=== PATIENT | female | born 1950 | race Caucasian/White ===

== ENCOUNTER 2017-09-07 11:46 | Observation (INO) | payer MEDICARE, OTHER ==
[2017-09-06 13:10] LABS: BASOPHILS # (AUTO) 0.1 (0.0-0.1); BASOPHILS % 0.7 % (0.0-1.0); EOSINOPHILS # (AUTO) 0.1 (0.0-0.4); EOSINOPHILS % 1.4 % (0.0-6.0); HEMATOCRIT 39.6 % (34.2-44.1); HEMOGLOBIN 13.8 g/dL (12.0-16.0); LYMPHOCYTES # (AUTO) 2.2 (1.0-3.2); LYMPHOCYTES % 23.2 % (18.0-39.1); MEAN CORPUSCULAR HEMOGLOBIN 31.1 pg (28-32); MEAN CORPUSCULAR HGB CONC 34.8 g/dL (31-35); MEAN CORPUSCULAR VOLUME 89.2 fL (81-99); MONOCYTES # (AUTO) 0.6 (0.2-0.8); MONOCYTES % 6.6 % (4.4-11.3); NEUTROPHILS # (AUTO) 6.3 (2.1-6.9); NEUTROPHILS % 67.5 % (38.7-80.0); PLATELET COUNT 289 x10e3/uL (140-360); RED BLOOD COUNT 4.44 x10e6/uL (3.6-5.1); RED CELL DISTRIBUTION WIDTH 13.2 % (11.7-14.4)
[2017-09-06 13:30] LABS: ALBUMIN 3.9 g/dL (3.5-5.0); ALBUMIN/GLOBULIN RATIO 1.1 (0.8-2.0); ANION GAP 16.1 mmol/L (8-16); CALCIUM 9.4 mg/dL (8.4-10.2); CREATININE, SERUM 0.98 mg/dL (0.57-1.11); POTASSIUM 4.1 mmol/L (3.5-5.1)
[~2017-09-07] VITALS: Ht 170.2 cm; Wt 79.8 kg
[~2017-09-07 11:46] MED LIST: AMLODIPINE BESYL5 MG PO; ASPIR 8181 MG PO; B-125000 MCG PO; BENICAR20 MG PO; CILOSTAZOL100 MG PO; CLOPIDOGREL75 MG PO; FLONASE NS; PRAVASTATIN SOD40 MG PO; VITAMIN D35000 UNI1 PO; ZYRTEC10 MG PO
[2017-09-07 15:25] VITALS: BP 145/73
[2017-09-07] MEDS ORDERED: DIPHENHYDRAMINE HCL 25 MG CAP ONE (15:55)
[2017-09-07] MEDS ORDERED: ALPRAZOLAM 0.5 MG TAB ONE (15:55)
[2017-09-07] MEDS ORDERED: HEPARIN SOD/SOD CHLORIDE 2,000 ML ONE (16:24)
[2017-09-07] MEDS ORDERED: FENTANYL CITRATE/PF 100MCG/2 ML INJ ONE (16:24)
[2017-09-07] MEDS ORDERED: IOPAMIDOL 370 MG/ML 200 ML INFUS..BTL INJ ONE (16:24)
[2017-09-07] MEDS ORDERED: LIDOCAINE HCL 2% LOCAL 20 ML VIAL ONE (16:24)
[2017-09-07] MEDS ORDERED: MIDAZOLAM HCL 2 MG/2 ML VIAL ONE ×2 (16:24→17:14)
[2017-09-07] MEDS ORDERED: VERAPAMIL HCL 2.5 MG/ML 2 ML VIAL ONE (17:00)
[2017-09-07] MEDS ORDERED: HEPARIN SOD (PORCINE) 1000 UNIT/ML 30ML ONE (17:00)
[2017-09-07] MEDS ORDERED: NITROGLYCERIN/D5W 200 MCG/ML 250 ML ONE (17:01)
[2017-09-07] MEDS ORDERED: SODIUM CHLORIDE 0.9% 1000ML 1,000 ML ONE (17:01)
[2017-09-07] MEDS ORDERED: ASPIRIN 325 MG TAB ONE (17:29)
[2017-09-07] MEDS ORDERED: PRASUGREL 10 MG TAB ONE (17:29)
[2017-09-07] MEDS ORDERED: ACETAMINOPHEN 325 MG TAB PO PRN (22:30)
[2017-09-08] VITALS: BP 135/63
[2017-09-08 04:00] VITALS: BP 140/63
[2017-09-08 07:30] VITALS: BP 140/63
[2017-09-08] MEDS ORDERED: CHOLECALCIFEROL PO SCH (09:00)
[2017-09-08] MEDS ORDERED: CLOPIDOGREL BISULFATE 75 MG TAB PO SCH (09:00)
[2017-09-08] MEDS ORDERED: ASPIRIN 81 MG CHEW TAB PO SCH (09:00)
[2017-09-08] MEDS ORDERED: CHOLECALCIFEROL 1,000 UNIT TAB PO SCH (09:00)
[2017-09-08] MEDS ORDERED: CETIRIZINE HCL PO SCH (09:00)
[2017-09-08] MEDS ORDERED: CILOSTAZOL 100 MG TAB PO SCH (09:00)
[2017-09-08] MEDS ORDERED: MECOBALAMIN 5000 MCG PO SCH (09:00)
[2017-09-08] MEDS ORDERED: OLMESARTAN 20 MG TAB PO SCH (09:00)
[2017-09-08] MEDS ORDERED: AMLODIPINE BESYLATE 5 MG TAB PO SCH (09:00)
[2017-09-08] MEDS ORDERED: LORATADINE 10 MG TAB PO SCH (09:00)
[2017-09-08 11:00] VITALS: BP 153/70
--- NOTE | 2017-09-08 14:04 | Discharge Summary ---
ADMISSION DIAGNOSIS: Claudication. DISCHARGE DIAGNOSIS: Peripheral arterial disease. PROCEDURES: Peripheral angiogram with atherectomy, drug-coated balloon, angioplasty and stenting of the left superficial femoral artery. HISTORY OF PRESENT ILLNESS AND HOSPITAL COURSE: This is a 66-year-old woman with peripheral arterial disease, hypertension and tobacco use, who presented for peripheral angiogram. She underwent procedure as above; however, post procedure was observed in the hospital overnight due to continued bleeding from her right groin site. Hemostasis was achieved with a pressure dressing, and after ambulation this morning, patient was discharged home in stable condition. ACTIVITY: As tolerated. No heavy lifting, no driving. Do not soak site in water for 1 week. DIET: Heart-healthy low-sodium diet. MEDICATIONS: Please see medication list. FOLLOWUP: With Dr. Sawyer in 2 weeks. PHYSICAL EXAMINATION VITAL SIGNS: Temperature 96.4 degrees, pulse 98, respiratory rate 18, blood pressure 153/70, oxygen saturation 97% on room air. GENERAL: Awake and alert, in no acute distress. LUNGS: Clear to auscultation bilaterally. No wheezes or crackles. CARDIOVASCULAR: Normal rate, regular rhythm. A 2/6 systolic murmur at the left sternal border. ABDOMEN: Soft. EXTREMITIES: No edema. Right groin without hematoma or bruit. No further oozing was noted from the procedure site. TELEMETRY: Sinus tachycardia. MIGUEL ÁNGEL TESFAYE MD Job#: [id number] EV
--- NOTE | 2017-09-08 15:34 | Operative Report ---
DATE OF PROCEDURE: September 07, 2017 INDICATIONS: Peripheral arterial disease, claudication which is lifestyle limiting in the left lower extremity. PROCEDURES PERFORMED 1. Abdominal aorta catheter placement by abdominal aortogram. 2. Bilateral lower extremity angiograms. 3. Selective placement of catheter from the right femoral artery to the left superficial femoral artery (third-order catheter placement). 4. Additional third-order catheter placement in right femoral artery and left anterior tibial artery. 5. Atherectomy and drug-coated balloon angioplasty of the left femoral artery. 6. Stent placement of the left superficial femoral artery. 7. Secondary thrombectomy of the left superficial femoral artery. 8. Deployment of right groin Perclose. COMPLICATIONS: None. RECOMMENDATIONS: Dual antiplatelet therapy for at least 3 months. Access was obtained in the right femoral artery. A 6-Martiniquais sheath was placed. Abdominal aortogram demonstrated minimal disease in the abdominal aorta and iliac arteries bilaterally with excellent flow. Proximal femoral arteries are patent bilaterally. The mid and distal left femoral artery was not well visualized. The catheter was advanced to the right femoral artery and left superficial femoral artery (third-order catheter placement). Previously angioplastied femoral artery on the left side was widely patent. However, distal 80% to 90% stenosis in the midfemoral artery was noted. Infrapopliteal vessels could not be seen. The catheter was then advanced in the right femoral artery to the left anterior tibial artery confirming 3-vessel runoff to the left foot. A decision was made to intervene on the left femoral artery. The patient received 10,000 units of intra-arterial heparin. The sheath was exchanged to a 45 cm, 6-Martiniquais sheath advanced from the left femoral artery to the left superficial femoral artery. The lesion was crossed using a Glidewire. The wire was exchanged to a Viper wire. Orbital atherectomy using a CSI 2-mm [place] was performed. Large amounts of visible thrombus necessitating secondary aspiration thrombectomy of the left femoral artery. Balloon angioplasty using a 5 mm drug-coated balloon was performed. However, residual dissection planes remained, which were flow-limiting necessitating stent placement. A single 6 x 40 mm self-expanding stent was deployed. Post dilated with a 6-mm balloon. Excellent end result. Less than 10% residual stenosis and 3-vessel runoff to the left foot. Right groin repaired using Perclose. Patient was observed in the hospital overnight prior to discharge. Job#: [id number] RI
== END 2017-09-08 11:31 | disposition home or self-care (01) ==
LOC: CATH LAB 11:46 → MED/SURG 20:21
PROVIDERS: ADMIT Internal Medicine Cardiovascular Disease; ATTEND Internal Medicine Cardiovascular Disease
DX: I70.212 Atherosclerosis of native arteries of extremities with intermittent claudication, left leg (principal); I10 Essential (primary) hypertension; R00.0 Tachycardia, unspecified; M96.831 Postprocedural hemorrhage of a musculoskeletal structure following other procedure; Z72.0 Tobacco use; Y83.8 Other surgical procedures as the cause of abnormal reaction of the patient, or of later complication, without mention of misadventure at the time of the procedure; Y92.238 Other place in hospital as the place of occurrence of the external cause; Z01.812 Encounter for preprocedural laboratory examination; Z79.82 Long term (current) use of aspirin; Z79.02 Long term (current) use of antithrombotics/antiplatelets; Z82.49 Family history of ischemic heart disease and other diseases of the circulatory system
CPT/HCPCS: 36415; 37186; 37227; 80053; 85025; C1724; C1725 ×3; C1769 ×2; C1876; C1887; G0378 ×2; J1644; J2001; J2250; J7030; Q9967; 36140; 75630; 75710; 77002

== ENCOUNTER → 2018-02-20 | Day surgery (SDC) | payer MEDICARE, OTHER ==
[~2018-02-20] MED LIST changes: +BENICAR HCT 401 EAC1 PO; +FENTANYL CITRATE/PF 100MCG/2 ML INJ ONE; +MIDAZOLAM HCL 2 MG/2 ML VIAL ONE; +PRAVASTATIN SOD20 MG PO
== END | disposition home or self-care (01) ==
LOC: OR 12:10
PROVIDERS: ATTEND Ophthalmology
DX: H25.11 Age-related nuclear cataract, right eye (principal); J44.9 Chronic obstructive pulmonary disease, unspecified; I10 Essential (primary) hypertension; E78.5 Hyperlipidemia, unspecified; M81.0 Age-related osteoporosis without current pathological fracture; F17.210 Nicotine dependence, cigarettes, uncomplicated; Z79.82 Long term (current) use of aspirin; Z79.02 Long term (current) use of antithrombotics/antiplatelets
CPT/HCPCS: 66984; J2250; V2632

== ENCOUNTER → 2018-04-12 | Day surgery (SDC) | payer MEDICARE, OTHER ==
[2018-04-04 11:14] LABS: BASOPHILS # (AUTO) 0.1 (0.0-0.1); EOSINOPHILS # (AUTO) 0.1 (0.0-0.4); EOSINOPHILS % 1.2 % (0.0-6.0); HEMATOCRIT 42.6 % (34.2-44.1); HEMOGLOBIN 14.8 g/dL (12.0-16.0); LYMPHOCYTES % 28.7 % (18.0-39.1); MEAN CORPUSCULAR HEMOGLOBIN 31.2 pg (28-32); MEAN CORPUSCULAR HGB CONC 34.7 g/dL (31-35); MEAN CORPUSCULAR VOLUME 89.7 fL (81-99); MONOCYTES # (AUTO) 0.4 (0.2-0.8); MONOCYTES % 6.4 % (4.4-11.3); NEUTROPHILS # (AUTO) 4.3 (2.1-6.9); NEUTROPHILS % 62.4 % (38.7-80.0); PLATELET COUNT 254 x10e3/uL (140-360); RED BLOOD COUNT 4.75 x10e6/uL (3.6-5.1); RED CELL DISTRIBUTION WIDTH 13.1 % (11.7-14.4)
[~2018-04-12] MED LIST changes: +CLARITIN-D 241 EACH PO; +HYOSCYAMINE SULFATE 0.5 MG/ML INJ ONE; +PROPOFOL IV EMULSION 10 MG/ML 50 ML VIAL ONE; +[UNRECOGNIZED DRUG - OTHER]
[2018-04-12 12:00] VITALS: BP 115/59
--- NOTE | 2018-04-12 13:19 | Operative Report ---
DATE OF PROCEDURE: April 12, 2018 REFERRING PHYSICIAN: Dr. Aidan Redd PROCEDURE PERFORMED: Colonoscopy and polypectomy. INDICATIONS FOR COLONOSCOPY: Colorectal cancer screening. MEDICATION: Patient was done under MAC. Please see anesthesiologist's note. PROCEDURE: With the patient in the left lateral decubitus position, the flexible fiberoptic Olympus colonoscope was inserted into the rectum with ease and advanced all the way to the cecum. Mucosa overlying the cecum appeared to be within normal limits. Two polyps, 1 cm in size and approximately 1.2 cm in size, sessile, flat, were noted in the proximal ascending colon. Both were removed per snare electrocautery. One polypectomy site was hemoclipped due to transient bleeding. The rest of the ascending colon appeared to be within normal limits. An approximately 1.5 cm, sessile, flat, polypoid lesion at the hepatic flexure that was partially resected per snare electrocautery. The site was tattooed. The rest of the transverse and descending appeared to be within normal limits. Three polyps were hot biopsied from the sigmoid colon. Three polyps were hot biopsied from the rectum. The scope was then retroflexed into the distal rectum, and small internal hemorrhoids were noted, none of which was actively bleeding. The scope was then straightened out. It was subsequently withdrawn. Patient tolerated the procedure well. IMPRESSION 1. Ascending colon polyps, sessile, flat, times 2, approximately 1 and 1.2 cm in size, removed per snare electrocautery. One polypectomy site was hemoclipped. 2. Approximately 1.5 cm, sessile, polypoid lesion, hepatic flexure, partially resected per snare electrocautery and site was tattooed. 3. Sigmoid colon polyps times 3, hot biopsied. 4. Rectal polyps times 3, hot biopsied. 5. Internal hemorrhoids, none actively bleeding. PLAN: Follow up histology. Initiate high-fiber, low-fat diet. Initiate high-fiber supplement. Patient will need a followup colonoscopy in 2 to 3 month to remove any residual tissue from the hepatic flexure lesion. Job#: [id number] cc:MELISA REDD DO
== END | disposition home or self-care (01) ==
LOC: OR 07:38
PROVIDERS: ATTEND Internal Medicine Gastroenterology
DX: Z12.11 Encounter for screening for malignant neoplasm of colon (principal); D12.2 Benign neoplasm of ascending colon; D12.3 Benign neoplasm of transverse colon; K62.1 Rectal polyp; K62.5 Hemorrhage of anus and rectum; K64.8 Other hemorrhoids; I10 Essential (primary) hypertension; J44.9 Chronic obstructive pulmonary disease, unspecified; E78.00 Pure hypercholesterolemia, unspecified; F17.210 Nicotine dependence, cigarettes, uncomplicated; Z01.810 Encounter for preprocedural cardiovascular examination; Z01.812 Encounter for preprocedural laboratory examination; Z79.82 Long term (current) use of aspirin; Z79.02 Long term (current) use of antithrombotics/antiplatelets
CPT/HCPCS: 36415; 45381; 45384; 45385; 85025; 88305; 93005; J1980; J2250; 45378

== ENCOUNTER → 2018-06-13 | Day surgery (SDC) | payer MEDICARE, OTHER ==
[2018-06-07 11:13] LABS: BASOPHILS # (AUTO) 0.1 (0.0-0.1); BASOPHILS % 0.7 % (0.0-1.0); EOSINOPHILS # (AUTO) 0.1 (0.0-0.4); EOSINOPHILS % 0.6 % (0.0-6.0); HEMATOCRIT 43.1 % (34.2-44.1); HEMOGLOBIN 14.7 g/dL (12.0-16.0); LYMPHOCYTES # (AUTO) 2.1 (1.0-3.2); LYMPHOCYTES % 21.2 % (18.0-39.1); MEAN CORPUSCULAR HEMOGLOBIN 30.2 pg (28-32); MEAN CORPUSCULAR HGB CONC 34.1 g/dL (31-35); MEAN CORPUSCULAR VOLUME 88.7 fL (81-99); MONOCYTES # (AUTO) 0.6 (0.2-0.8); MONOCYTES % 5.6 % (4.4-11.3); NEUTROPHILS # (AUTO) 7.1 (2.1-6.9); NEUTROPHILS % 71.7 % (38.7-80.0); PLATELET COUNT 264 x10e3/uL (140-360); RED BLOOD COUNT 4.86 x10e6/uL (3.6-5.1); RED CELL DISTRIBUTION WIDTH 13.1 % (11.7-14.4)
[~2018-06-13] MED LIST changes: +GLUCAGON FOR INJ 1 MG VIAL ONE; +LIDOCAINE HCL 2% LOCAL INJ 5 ML SDV VIAL INJ ONE; +PHENYLEPHRINE HCL 1% 10 MG/ML VIAL ONE; -PROPOFOL IV EMULSION 10 MG/ML 50 ML VIAL ONE
[2018-06-13 10:30] VITALS: BP 114/59
--- NOTE | 2018-06-13 11:05 | Operative Report ---
DATE OF PROCEDURE: June 13, 2018 REFERRING PHYSICIAN: Dr. Martha Redd. PROCEDURE PERFORMED: Colonoscopy and a polypectomy note. INDICATIONS FOR COLONOSCOPY: History of partially resected large hepatic flexure polyp in the recent past. Patient is in for a followup colonoscopy and attempt to remove any residual polypoid tissue. MEDICATION: Patient was done under MAC. Please see anesthesiologist's note. PROCEDURE: With the patient in left lateral decubitus position, a flexible fiberoptic Olympus colonoscope was inserted into the rectum with ease and advanced all the way to the cecum. The scope was then withdrawn slowly. Mucosa overlying the cecum and ascending colon grossly appeared to be within normal limits. An approximately 1.4-cm sessile flat polypoid lesion was noted in the hepatic flexure and it was removed per piecemeal electrocautery. Polypectomy site was hemoclipped x2. The transverse, descending and sigmoid grossly appeared to be within normal limits. Two minute polyps were hot biopsied from the rectum. The scope was then retroflexed into the distal rectum and small internal hemorrhoids were noted, none of which was actively bleeding. The scope was then straightened out and was subsequently withdrawn. Patient tolerated the procedure well. IMPRESSIONS 1. Approximately 1.4-cm sessile polypoid lesion, hepatic flexure, removed per piecemeal electrocautery and hemoclipped x2. 2. Rectal polyps, minute, x2, hot biopsied. 3. Internal hemorrhoids. None actively bleeding. PLAN: Follow up histology. Initiate high-fiber, low-fat diet. Initiate high-fiber supplement. Patient might benefit from a followup colonoscopy in 6 months to 1 year pending pathology report. Job#: [id number] cc:MARTHA REDD, DO,
== END | disposition home or self-care (01) ==
LOC: OR 06:44
PROVIDERS: ATTEND Internal Medicine Gastroenterology
DX: Z09 Encounter for follow-up examination after completed treatment for conditions other than malignant neoplasm (principal); D12.3 Benign neoplasm of transverse colon; K62.1 Rectal polyp; K64.8 Other hemorrhoids; J44.9 Chronic obstructive pulmonary disease, unspecified; I10 Essential (primary) hypertension; E78.5 Hyperlipidemia, unspecified; F17.210 Nicotine dependence, cigarettes, uncomplicated; Z01.812 Encounter for preprocedural laboratory examination; Z79.82 Long term (current) use of aspirin; Z79.02 Long term (current) use of antithrombotics/antiplatelets; Z87.01 Personal history of pneumonia (recurrent)
CPT/HCPCS: 36415; 45384; 45388; 85025; 88305; J1610; J1980; J2001; J2250; J2370; 45378; 45385

== ENCOUNTER → 2019-11-28 | Outpatient (CLI) | payer MEDICARE, OTHER ==
[~2019-11-28] MED LIST changes: +DIATRIZOATE MEGL/DIATRIZOA SOD 30 ML BTL PO ONE; -FENTANYL CITRATE/PF 100MCG/2 ML INJ ONE; -GLUCAGON FOR INJ 1 MG VIAL ONE; -HYOSCYAMINE SULFATE 0.5 MG/ML INJ ONE; +IOPAMIDOL 370 MG/ML 200 ML INFUS..BTL INJ ONE; -LIDOCAINE HCL 2% LOCAL INJ 5 ML SDV VIAL INJ ONE; +LORATADINE10 MG PO; -MIDAZOLAM HCL 2 MG/2 ML VIAL ONE; +MULTI-VITAMIN1 EACH PO; +OMEGA-3 FISH O1 EAC3 PO; -PHENYLEPHRINE HCL 1% 10 MG/ML VIAL ONE; +SODIUM CHLORIDE 0.9% 50ML 50 ML ONE; -[UNRECOGNIZED DRUG - OTHER]; +[UNRECOGNIZED DRUG - OTHER] INH
[2019-11-28 12:51] LABS: BASOPHILS # (AUTO) 0.1 (0.0-0.1); BASOPHILS % 0.7 % (0.0-1.0); EOSINOPHILS # (AUTO) 0.2 (0.0-0.4); EOSINOPHILS % 1.8 % (0.0-6.0); HEMATOCRIT 42.2 % (34.2-44.1); HEMOGLOBIN 14.3 g/dL (12.0-16.0); LYMPHOCYTES # (AUTO) 2.5 (1.0-3.2); MEAN CORPUSCULAR HEMOGLOBIN 30.3 pg (28-32); MEAN CORPUSCULAR HGB CONC 33.9 g/dL (31-35); MEAN CORPUSCULAR VOLUME 89.4 fL (81-99); MONOCYTES # (AUTO) 0.7 (0.2-0.8); MONOCYTES % 7.4 % (4.4-11.3); NEUTROPHILS # (AUTO) 5.3 (2.1-6.9); NEUTROPHILS % 60.8 % (38.7-80.0); PLATELET COUNT 269 x10e3/uL (140-360); RED BLOOD COUNT 4.72 x10e6/uL (3.6-5.1); RED CELL DISTRIBUTION WIDTH 13.1 % (11.7-14.4)
[2019-11-28 13:02] LABS: CREATININE, SERUM 0.93 mg/dL (0.57-1.11)
--- NOTE | 2019-11-28 14:15 | Diagnostic Imaging Report ---
EXAM: CT Abdomen and Pelvis WITH intravenous contrast INDICATION: Left lower quadrant abdominal pain COMPARISON: None. TECHNIQUE: Abdomen and pelvis were scanned utilizing a multidetector helical scanner from the lung base to the pubic symphysis after administration of IV contrast. Coronal and sagittal reformations were obtained. Routine protocol was performed. Scan was performed during portal venous phase. IV CONTRAST: 100mL of Isovue 370 ORAL CONTRAST: Gastrografin RADIATION DOSE: Total DLP: 502 mGy*cm Dose modulation, iterative reconstruction, and/or weight based adjustment of the mA/kV was utilized to reduce the radiation dose to as low as reasonably achievable. FINDINGS: LOWER THORAX: Ectatic distal thoracic aorta. Diffuse atherosclerotic arterial calcifications. HEPATOBILIARY: Mild diffuse hepatic steatosis. Left hepatic cyst. No other focal liver lesions. Unremarkable gallbladder. SPLEEN: No splenomegaly. PANCREAS: No focal masses or ductal dilatation. ADRENALS: No adrenal nodules. KIDNEYS/URETERS: Chronic atrophy of the right kidney. 2 mm anterior left midpole nonobstructive renal calculus. No hydronephrosis. Subcentimeter left renal cysts. PELVIC ORGANS/BLADDER: Status post hysterectomy. PERITONEUM / RETROPERITONEUM: No free air or fluid. LYMPH NODES: No lymphadenopathy. VESSELS: Diffuse atherosclerotic calcifications. The aorta measures up to 3.4 cm at the level of the diaphragmatic edgar. GI TRACT: No abnormal bowel thickening. No bowel obstruction. Normal appendix. BONES AND SOFT TISSUES: No acute osseous injury. No suspicious lytic or blastic lesions. IMPRESSION: Ectatic thoracoabdominal aorta, measuring up to 3.4 cm at the level of the diaphragmatic edgar. Follow-up CTA is recommended in 12 months to assess for stability of abdominal aortic aneurysm. Chronic appearing atrophy of the right kidney. Nonobstructive 2 mm left renal calculus. Mild diffuse hepatic steatosis. Signed by: Carole Williamson MD on 11/28/2019 2:11 PM
== END ==
LOC: CT 11:57
PROVIDERS: ATTEND Internal Medicine Gastroenterology
DX: R10.32 Left lower quadrant pain (principal)
CPT/HCPCS: 36415; 74177; 82565; 84520; 85025; Q9967

== ENCOUNTER → 2019-12-12 | Day surgery (SDC) | payer MEDICARE, OTHER ==
[2019-12-09 13:14] LABS: BASOPHILS # (AUTO) 0.1 (0.0-0.1); BASOPHILS % 0.6 % (0.0-1.0); EOSINOPHILS # (AUTO) 0.2 (0.0-0.4); EOSINOPHILS % 2.3 % (0.0-6.0); HEMOGLOBIN 14.8 g/dL (12.0-16.0); LYMPHOCYTES # (AUTO) 2.2 (1.0-3.2); LYMPHOCYTES % 26.4 % (18.0-39.1); MEAN CORPUSCULAR HEMOGLOBIN 31.1 pg (28-32); MEAN CORPUSCULAR HGB CONC 35.2 g/dL (31-35); MEAN CORPUSCULAR VOLUME 88.2 fL (81-99); MONOCYTES # (AUTO) 0.6 (0.2-0.8); MONOCYTES % 7.4 % (4.4-11.3); NEUTROPHILS # (AUTO) 5.2 (2.1-6.9); NEUTROPHILS % 62.9 % (38.7-80.0); PLATELET COUNT 258 x10e3/uL (140-360); RED BLOOD COUNT 4.76 x10e6/uL (3.6-5.1); RED CELL DISTRIBUTION WIDTH 12.9 % (11.7-14.4)
[~2019-12-12] MED LIST changes: +BENZOCAINE/TETRACAINE/BUTAMBEN AERO SPRAY 56 GM CAN ONE; -DIATRIZOATE MEGL/DIATRIZOA SOD 30 ML BTL PO ONE; +ETOMIDATE 2 MG/ML 10 ML INJ IV ONE; +HYOSCYAMINE 0.125 MG TAB ONE; -IOPAMIDOL 370 MG/ML 200 ML INFUS..BTL INJ ONE; +PROVENTIL HFA6.7 GM INH; -SODIUM CHLORIDE 0.9% 50ML 50 ML ONE
[2019-12-12 09:30] VITALS: BP 131/74
--- NOTE | 2019-12-12 09:42 | Operative Report ---
DATE OF PROCEDURE: 12/12/2019 SURGEON: Thaddeus Wagner MD PROCEDURE: Colonoscopy with polypectomy and biopsies. INDICATION FOR COLONOSCOPY: Rectal bleeding, suboptimal prep on previous colonoscopy, personal history of colon polyps. MEDICATIONS: The patient was done under MAC. Please see anesthesiologist's note. PROCEDURE IN DETAIL: With the patient in left lateral decubitus position, flexible fiberoptic Olympus colonoscope was inserted into the rectum with ease and advanced all the way to the cecum. It was then withdrawn slowly. Mucosa overlying the cecum and ascending colon appeared to be within normal limits. A tattooed site at hepatic flexure was biopsied. The transverse and descending grossly appeared to be within normal limits. Two minute polyps were hot biopsied from the sigmoid colon. One polyp was hot biopsied from the proximal rectum. The scope was then retroflexed into the distal rectum and moderate-sized internal hemorrhoids were noted, none of which was actively bleeding. The scope was then straightened out. It was subsequently withdrawn. The patient tolerated the procedure well. IMPRESSION: 1. Tattooed polypectomy site, hepatic flexure, biopsied. 2. Sigmoid colon polyps x2, hot biopsied. 3. Rectal polyp x1, hot biopsied. 4. Internal hemorrhoids, none actively bleeding. PLAN: Follow up histology. Initiate high-fiber, low-fat diet. Initiate high-fiber supplement. Proctosol-HC 25 mg suppository b.i.d. x10 days and p.r.n. The patient might benefit from a followup colonoscopy in 3 years. Thaddeus Wagner MD [facility] [place] /[id number] cc: Jack Todd DO
== END | disposition home or self-care (01) ==
LOC: OR 06:30
PROVIDERS: ATTEND Internal Medicine Gastroenterology
DX: K62.5 Hemorrhage of anus and rectum (principal); D12.5 Benign neoplasm of sigmoid colon; K62.1 Rectal polyp; K64.8 Other hemorrhoids; R10.32 Left lower quadrant pain; J44.9 Chronic obstructive pulmonary disease, unspecified; I73.9 Peripheral vascular disease, unspecified; I10 Essential (primary) hypertension; N26.1 Atrophy of kidney (terminal); F17.210 Nicotine dependence, cigarettes, uncomplicated; Z01.812 Encounter for preprocedural laboratory examination; Z11.59 Encounter for screening for other viral diseases; Z79.02 Long term (current) use of antithrombotics/antiplatelets; Z95.820 Peripheral vascular angioplasty status with implants and grafts
CPT/HCPCS: 36415; 45380; 45384; 85025; 87635; 88305

== ENCOUNTER → 2020-07-21 | Day surgery (SDC) | payer MEDICARE, OTHER ==
[2020-07-16 10:55] LABS: BASOPHILS # (AUTO) 0.1 (0.0-0.1); BASOPHILS % 0.9 % (0.0-1.0); EOSINOPHILS # (AUTO) 0.2 (0.0-0.4); EOSINOPHILS % 2.3 % (0.0-6.0); HEMATOCRIT 41.8 % (34.2-44.1); HEMOGLOBIN 14.2 g/dL (12.0-16.0); LYMPHOCYTES # (AUTO) 2.5 (1.0-3.2); LYMPHOCYTES % 28.6 % (18.0-39.1); MEAN CORPUSCULAR HEMOGLOBIN 30.8 pg (28-32); MEAN CORPUSCULAR VOLUME 90.7 fL (81-99); MONOCYTES # (AUTO) 0.6 (0.2-0.8); MONOCYTES % 7.2 % (4.4-11.3); NEUTROPHILS # (AUTO) 5.2 (2.1-6.9); NEUTROPHILS % 60.7 % (38.7-80.0); PLATELET COUNT 258 x10e3/uL (140-360); RED BLOOD COUNT 4.61 x10e6/uL (3.6-5.1); RED CELL DISTRIBUTION WIDTH 13.3 % (11.7-14.4)
[2020-07-16 11:30] LABS: ALANINE AMINOTRANSFERASE 17 IU/L (0-55); ALBUMIN 4.1 g/dL (3.5-5.0); ALBUMIN/GLOBULIN RATIO 1.2 (0.8-2.0); ALKALINE PHOSPHATASE 107 IU/L (40-150); ANION GAP 11.4 mmol/L (8-16); BLOOD UREA NITROGEN 10 mg/dL (7-26); BUN/CREATININE RATIO 11 (6-25); CARBON DIOXIDE 30 mmol/L (22-29); CHLORIDE 102 mmol/L (98-107); CREATININE, SERUM 0.88 mg/dL (0.57-1.11); EST GLOMERULAR FILTRATION RATE > 60 ML/MIN (60-); GLUCOSE 101 mg/dL (74-118); POTASSIUM 3.4 mmol/L (3.5-5.1); SODIUM 140 mmol/L (136-145)
[2020-07-21] VITALS (8 sets, daily range): BP systolic 124–149; BP diastolic 44–66
[~2020-07-21] VITALS: Ht 170.2 cm; Wt 75.7 kg
[~2020-07-21] MED LIST changes: +ALPRAZOLAM 0.5 MG TAB ONE; -BENZOCAINE/TETRACAINE/BUTAMBEN AERO SPRAY 56 GM CAN ONE; +BEVESPI AEROS10.7 GM INH; +DIPHENHYDRAMINE HCL 25 MG CAP ONE; -ETOMIDATE 2 MG/ML 10 ML INJ IV ONE; +FENTANYL CITRATE/PF 100MCG/2 ML INJ ONE; +HEPARIN SOD/SOD CHLORIDE 2,000 ML ONE; -HYOSCYAMINE 0.125 MG TAB ONE; +IOPAMIDOL 370 MG/ML 200 ML INFUS..BTL INJ ONE; +LIDOCAINE HCL 2% LOCAL 20 ML VIAL ONE; +MIDAZOLAM HCL 2 MG/2 ML VIAL ONE; +SODIUM CHLORIDE 0.9% 1000ML 1,000 ML ONE; +ZINC PO
== END | disposition home or self-care (01) ==
LOC: CATH LAB 13:09
PROVIDERS: ATTEND Internal Medicine Interventional Cardiology
DX: I25.118 Atherosclerotic heart disease of native coronary artery with other forms of angina pectoris (principal); R03.0 Elevated blood-pressure reading, without diagnosis of hypertension; F17.210 Nicotine dependence, cigarettes, uncomplicated; Z01.812 Encounter for preprocedural laboratory examination; Z20.822 Contact with and (suspected) exposure to COVID-19; Z79.82 Long term (current) use of aspirin; Z95.820 Peripheral vascular angioplasty status with implants and grafts; Z82.49 Family history of ischemic heart disease and other diseases of the circulatory system
CPT/HCPCS: 36415; 76937; 80053; 85025; 93458; C1769 ×2; C1887; J2001; J2250; J3010; J7030; Q9967; U0002; 99152; 99153

== ENCOUNTER → 2020-12-03 | Outpatient (CLI) | payer MEDICARE, OTHER ==
[~2020-12-03] MED LIST changes: -ALPRAZOLAM 0.5 MG TAB ONE; -DIPHENHYDRAMINE HCL 25 MG CAP ONE; -FENTANYL CITRATE/PF 100MCG/2 ML INJ ONE; -HEPARIN SOD/SOD CHLORIDE 2,000 ML ONE; -LIDOCAINE HCL 2% LOCAL 20 ML VIAL ONE; -MIDAZOLAM HCL 2 MG/2 ML VIAL ONE; +SODIUM CHLORIDE 0.9% 100 ML ONE; -SODIUM CHLORIDE 0.9% 1000ML 1,000 ML ONE
== END ==
LOC: CT 11:16
PROVIDERS: ATTEND Family Medicine
DX: I71.4 Abdominal aortic aneurysm, without rupture (principal)
CPT/HCPCS: 74175; J7050; Q9967

== ENCOUNTER → 2024-04-12 | Outpatient (REF) | payer MEDICARE, OTHER ==
[~2024-04-12] MED LIST changes: +IOPAMIDOL 370 MG/ML 100 ML INFUS..BTL INJ ONE; -IOPAMIDOL 370 MG/ML 200 ML INFUS..BTL INJ ONE
[2024-04-12 09:06] LABS: CREATININE, SERUM 0.89 mg/dL (0.57-1.11)
== END ==
LOC: CT 07:51
PROVIDERS: ATTEND Internal Medicine Interventional Cardiology
DX: I71.20 Thoracic aortic aneurysm, without rupture, unspecified (principal)
CPT/HCPCS: 36415; 71275; 74174; 82565; 84520; J7050; Q9967